=== PATIENT | female | born 1960 | race Caucasian/White ===

== ENCOUNTER → 2019-07-28 | Outpatient (CLI) | payer MEDICARE ==
[2019-07-28 14:42] LABS: COLLECTION METHOD CLEAN CATCH
[2019-07-28 14:46] LABS: BASO % 0.4 % (0.0-2.0); EOS % 0.6 % (0-4.0); GRAN # 3.6 (1.4-6.5); GRAN % 50.6 % (42.2-75.2); HEMATOCRIT 44.9 % (37.0-47.0); HEMOGLOBIN 14.2 g/dl (12.5-16.0); LYMPH # 3.1 (1.2-3.4); LYMPH % 43.3 % (20.0-51.0); MEAN CELL VOLUME 89 fl (80.0-100.0); MEAN CORPUSCULAR HEMOGLOBIN 28 pg (27.0-31.0); MEAN CORPUSCULAR HGB CONC 32 g/dl (33.0-37.0); MEAN PLATELET VOLUME 10.4 fl (7.4-10.4); MONO # 0.4 (0.1-0.6); PLATELET COUNT 311 K/mm3 (130-400); RED BLOOD COUNT 5.05 M/mm3 (4.10-5.30)
[2019-07-28 15:01] LABS: CALCIUM 9.4 mg/dL (8.4-10.2); CREATININE, serum 0.49 (0.52-1.25); POTASSIUM 3.5 mmol/L (3.4-5.0)
[2019-07-28 15:11] LABS: MUCOUS Present /lpf; PH 7 (5-8); URINE APPEARANCE Clear; URINE BACTERIA None Seen /hpf; URINE BILIRUBIN Negative (NEGATIVE); URINE BLOOD Negative (NEGATIVE); URINE COLOR Yellow; URINE GLUCOSE Negative (NEGATIVE); URINE KETONE Negative (NEGATIVE); URINE LEUKOCYTE ESTERASE Negative (NEGATIVE); URINE NITRATE Negative (NEGATIVE); URINE PROTEIN(semi-quant) Negative (NEGATIVE); URINE RBC 0-2 /hpf; URINE UROBILINOGEN Negative (NEGATIVE)
[2019-07-28 15:12] LABS: INR 0.9 (0.8-3.0); PROTHROMBIN TIME 10.8 SECONDS (9.7-12.8)
[2019-07-28 15:14] LABS: PARTIAL THROMBOPLASTIN TIME 29.4 SECONDS (26.0-37.0)
== END ==
LOC: ZLAB.STJ 14:32
PROVIDERS: Family Medicine
DX: Z01.812 Encounter for preprocedural laboratory examination (principal); G35 Multiple sclerosis

== ENCOUNTER → 2019-12-03 | Outpatient (CLI) | payer MEDICARE, MEDICAID ==
[2019-12-03 10:13] LABS: COLLECTION METHOD CLEAN CATCH
[2019-12-03 10:21] LABS: BASO % 0.3 % (0.0-2.0); EOS # 0.1 (0.0-0.7); EOS % 0.8 % (0-4.0); GRAN # 3.6 (1.4-6.5); GRAN % 54.5 % (42.2-75.2); HEMATOCRIT 39.6 % (37.0-47.0); HEMOGLOBIN 12.6 g/dl (12.5-16.0); LYMPH # 2.1 (1.2-3.4); LYMPH % 32.8 % (20.0-51.0); MEAN CELL VOLUME 88 fl (80.0-100.0); MEAN CORPUSCULAR HEMOGLOBIN 28 pg (27.0-31.0); MEAN CORPUSCULAR HGB CONC 32 g/dl (33.0-37.0); MEAN PLATELET VOLUME 9.8 fl (7.4-10.4); MONO # 0.7 (0.1-0.6); MONO % 11.3 % (1.7-9.3); PLATELET COUNT 296 K/mm3 (130-400); RED BLOOD COUNT 4.49 M/mm3 (4.10-5.30); REDCELL DISTRIBUTION WIDTH-CV 14.3 % (11.5-14.5)
[2019-12-03 10:23] LABS: ALBUMIN 3.8 gm/dL (3.5-5.0); BILIRUBIN,TOTAL 0.4 mg/dL (0.0-1.0); CALCIUM 8.9 mg/dL (8.4-10.2); CREATININE, serum 0.57 (0.52-1.25); POTASSIUM 4.6 mmol/L (3.4-5.0); TOTAL PROTEIN 7.2 gm/dL (6.4-8.2)
[2019-12-03 10:34] LABS: PH 5 (5-8); URINE APPEARANCE Turbid; URINE BILIRUBIN Negative (NEGATIVE); URINE BLOOD Negative (NEGATIVE); URINE GLUCOSE Negative (NEGATIVE); URINE KETONE Negative (NEGATIVE); URINE LEUKOCYTE ESTERASE Negative (NEGATIVE); URINE NITRATE Negative (NEGATIVE); URINE RBC 0-2 /hpf; URINE UROBILINOGEN Negative (NEGATIVE)
[2019-12-03 10:53] LABS: THYROID STIMULATING HORMONE 1.82 uIU/mL (0.465-4.680)
[2019-12-03 11:21] LABS: URINE BACTERIA Rare /hpf; URINE CALCIUM OXALATE CRYSTAL Present /hpf
[2019-12-03 11:22] LABS: URINE COLOR Yellow; URINE PROTEIN(semi-quant) 1+ (NEGATIVE)
== END ==
LOC: ZLAB.STJ 10:04
PROVIDERS: Family Medicine
DX: Z13.29 Encounter for screening for other suspected endocrine disorder (principal); G35 Multiple sclerosis; F32.1 Major depressive disorder, single episode, moderate; G50.0 Trigeminal neuralgia; Z79.899 Other long term (current) drug therapy

== ENCOUNTER 2020-05-12 12:41 | Inpatient (IN) | payer MEDICARE, MEDICAID ==
[~2020-05-12] VITALS: Ht 170.2 cm; Wt 64.5 kg
[2020-05-12] VITALS (214 sets, daily range): BP systolic 161–178; BP diastolic 92–122; PULSE 86–96; TEMP 98.5–99.6; O2SAT 78–100
[2020-05-12 13:05] LABS: BASO % 0.4 % (0.0-2.0); EOS # 0.1 (0.0-0.7); EOS % 0.8 % (0-4.0); GRAN % 52.5 % (42.2-75.2); HEMATOCRIT 40.9 % (37.0-47.0); HEMOGLOBIN 13.2 g/dl (12.5-16.0); LYMPH # 2.6 (1.2-3.4); LYMPH % 34.9 % (20.0-51.0); MEAN CELL VOLUME 85 fl (80.0-100.0); MEAN CORPUSCULAR HEMOGLOBIN 27 pg (27.0-31.0); MEAN CORPUSCULAR HGB CONC 32 g/dl (33.0-37.0); MEAN PLATELET VOLUME 9.3 fl (7.4-10.4); MONO # 0.8 (0.1-0.6); PLATELET COUNT 272 K/mm3 (130-400); RED BLOOD COUNT 4.82 M/mm3 (4.10-5.30); REDCELL DISTRIBUTION WIDTH-CV 14.4 % (11.5-14.5)
[2020-05-12 13:07] LABS: INR 1.1 (0.8-3.0)
[2020-05-12 13:28] LABS: BILIRUBIN,TOTAL 0.4 mg/dL (0.0-1.0); C-REACTIVE PROTEIN 0.9 mg/dL (0.0-0.9); CALCIUM 9.1 mg/dL (8.4-10.2); CREATININE, serum 0.68 (0.52-1.25); POTASSIUM 4.2 mmol/L (3.4-5.0)
[2020-05-12] MEDS ORDERED: BETASERON0.3 M2 (14:07)
[2020-05-12] MEDS ORDERED: TRILEPTAL 150M150 MG PO ×2 (14:09→23:35)
[2020-05-12] MEDS ORDERED: PAXIL 10MG10 MG PO (14:10)
[2020-05-12 14:31] LABS: COLLECTION METHOD CLEAN CATCH
[2020-05-12 14:43] LABS: MUCOUS Present /lpf; PH 5 (5-8); URINE APPEARANCE Cloudy; URINE BACTERIA Occasional /hpf; URINE BILIRUBIN Negative (NEGATIVE); URINE BLOOD Negative (NEGATIVE); URINE COLOR Yellow; URINE GLUCOSE Negative (NEGATIVE); URINE KETONE Trace (NEGATIVE); URINE LEUKOCYTE ESTERASE Trace (NEGATIVE); URINE NITRATE Negative (NEGATIVE); URINE PROTEIN(semi-quant) Negative (NEGATIVE); URINE UROBILINOGEN Negative (NEGATIVE)
--- NOTE | 2020-05-12 17:35 | NUR ---
Patient transferred to ICU bed 6 via ED stretcher with no complications. Patient connected to bedside monitor, vital signs stable, patient on room air with oxygen sats in the high 90's. Full assessment completed. Inspiratory and expiratory wheeze noted to all lung blake. Heart sounds normal rate and rhythm, S1 and S2 auscultated, no murmurs. Bowel sounds present, patient states last bowel movement yesterday. Refer to NIHSS documentation for change in status and increasing stroke symptoms. Pulses 2+ bilateral radial and 1+ pedal pulses. Patient has no pain at this time. Bed in lowest position, side rails up x3, call light and personal items placed within reach. 1745- Dr. Bruce at bedside to assess patient. Orders received.
--- NOTE | 2020-05-12 21:05 | NUR ---
Patient resting quietly in bed. BP 165/101, other vitals within normal limits. Patient alert and oriented x 4. Right sided weakness is evident; right sided facial droop, some resistance to gravity noted in the right upper and lower extremity. The right lower extremity is movable on the bed. Shakiness noted in the left upper extremity, but normal strength noted. Speech is slurred but understandable. Normal cough and gag reflexes present, however, will withhold PO medications at this time until speech can evaluate. Will continue to monitor.
--- NOTE | 2020-05-12 21:35 | NUR ---
Contacted hospitalist regarding PRN labetolol orders. Patient's SBP have been below 180, however, the DBP has been greater than 100 four times in the last hour, peaking at 123. Received orders to administer labetolol for SBP >180 or DBP > 105. Also spoke with hospitalist regarding hourly disphagia screening. Patient being held NPO pending speech/swallow evaluation. Hospitalist agrees hourly disphagia screen is not necessary; will retime intervention to coincide every four hours with full body assessment. Will continue to monitor.
[2020-05-13] VITALS (774 sets, daily range): BP systolic 129–186; BP diastolic 75–111; PULSE 80–109; TEMP 98–99; O2SAT 48–100
--- NOTE | 2020-05-13 02:00 | NUR ---
Notified by microfilm technician that patient had 3-4 second run of what appeared to be vfib. At the time, staff was at the bedside repositioning patient, however, a similar non-sustained episode noted at approximately 1930 while patient resting quietly in bed. Hospitalist notified and stat EKG ordered.
--- NOTE | 2020-05-13 11:26 | NUR ---
JAITN met with the patient to discuss discharge plan. The patient resides at [facility] in assisted living. She reports independence with ADLs and utilizes an electric scooter. The patient's PCP is Dr. Jaime Greene and she receives her medications at [facility]. JATIN contacted Dr. Jimenez's office and requested a copy of the patient's advanced directives. JATIN received the DPOA-HC and DPOA, via fax, from Dr. Jimenez's office. The patient's DPOA-HC is her sisters: Patricia Kumar (ph#[phone]) and Beatriz Bettencourt (ph#[phone]). It also designated her ex-husbad, Venancio. The patient stated to cross her Venancio off the form. The patient was admitted due to a stroke. JATIN discussed post-acute rehab. The patient was agreeable to rehab and chose [facility]. JATIN contacted and faxed a referral to Donnie at [facility]. Donnie reports that they would be able to accept the patient and have a bed for her. JATIN contacted and updated the patient's sister, Patricia. JATIN to continue to follow.
[2020-05-13 14:43] LABS: CALCIUM 8.8 mg/dL (8.4-10.2); CREATININE, serum 0.53 (0.52-1.25); POTASSIUM 3.8 mmol/L (3.4-5.0)
[2020-05-13 14:46] LABS: BASO % 0.2 % (0.0-2.0); EOS % 0.4 % (0-4.0); GRAN # 3.2 (1.4-6.5); GRAN % 60.4 % (42.2-75.2); LYMPH # 1.5 (1.2-3.4); MEAN CELL VOLUME 84 fl (80.0-100.0); MEAN CORPUSCULAR HGB CONC 33 g/dl (33.0-37.0); MEAN PLATELET VOLUME 9.4 fl (7.4-10.4); MONO # 0.5 (0.1-0.6); MONO % 9.8 % (1.7-9.3); RED BLOOD COUNT 6.29 M/mm3 (4.10-5.30); REDCELL DISTRIBUTION WIDTH-CV 14.7 % (11.5-14.5)
[2020-05-13 14:50] LABS: HEMATOCRIT 52.9 % (37.0-47.0); HEMOGLOBIN 17.3 g/dl (12.5-16.0); MEAN CORPUSCULAR HEMOGLOBIN 28 pg (27.0-31.0); PLATELET COUNT 153 K/mm3 (130-400)
--- NOTE | 2020-05-13 20:00 | NUR ---
Assessment complete; patient alert and oriented. Right sided weakness observed. Patient reports this is per her normal since hospital arrival. Assisted to change purwick at this time. Will continue to monitor.
--- NOTE | 2020-05-13 22:15 | NUR ---
Dr. Luu placed written orders in patient's chart. Will need to clarify medication orders in the morning.
--- NOTE | 2020-05-13 22:18 | NUR ---
Patient hypertensive with systolic's ranging 170-180 and diastolic greater than 100. Administered PRN labatelol with some effect in lowering BP. Hospitalist notifed of patient's recent blood pressures to verify that they are on target for post stroke goal. No changes at this time. Will continue to monitor.
[2020-05-14] VITALS (301 sets, daily range): BP systolic 117–171; BP diastolic 87–106; PULSE 79–100; TEMP 97.9–98.9; O2SAT 91–98
--- NOTE | 2020-05-14 01:54 | NUR ---
Resting quietly in bed; awakens easily. Alert and oriented per usual. Will continue to monitor.
[2020-05-14 05:59] LABS: BASO % 0.3 % (0.0-2.0); EOS % 0.6 % (0-4.0); GRAN # 4.3 (1.4-6.5); GRAN % 59.9 % (42.2-75.2); HEMATOCRIT 38.1 % (37.0-47.0); LYMPH # 2.1 (1.2-3.4); MEAN CELL VOLUME 85 fl (80.0-100.0); MEAN CORPUSCULAR HEMOGLOBIN 28 pg (27.0-31.0); MEAN CORPUSCULAR HGB CONC 33 g/dl (33.0-37.0); MEAN PLATELET VOLUME 9.6 fl (7.4-10.4); MONO # 0.7 (0.1-0.6); MONO % 10.1 % (1.7-9.3); PLATELET COUNT 245 K/mm3 (130-400); RED BLOOD COUNT 4.51 M/mm3 (4.10-5.30); REDCELL DISTRIBUTION WIDTH-CV 14.5 % (11.5-14.5)
[2020-05-14 06:00] LABS: HEMOGLOBIN 12.6 g/dl (12.5-16.0)
[2020-05-14 06:05] LABS: CREATININE, serum 0.48 (0.52-1.25); POTASSIUM 3.9 mmol/L (3.4-5.0)
--- NOTE | 2020-05-14 14:30 | NUR ---
Report called to Gilda at 1339. Notified DPOA of room change at 1345. Patient transfered to medical floor via bed with belongings and IV infusing at 1430. Patient pleasant and cooperative throughout transfer.
--- NOTE | 2020-05-14 15:56 | NUR ---
The hospitalist asked JATIN if [facility] would be able to administer Solumedrol, via IV, for the patient and if not; if they could bring the patient to the express unit for this. JATIN contacted and asked Donnie at [facility]. Donnie reports that he is unsure and will need updates with this information and would provide it to his clinical team. JATIN informed the hospitalist of this. JATIN awaiting progress note with the Solumedrol instructions. JATIN to continue to follow.
--- NOTE | 2020-05-14 16:32 | NUR ---
The patient's progress note from today is still pending. JATIN notified and faxed the patient's other notes to Donnie at [facility]. JATIN to continue to follow.
--- NOTE | 2020-05-14 16:33 | NUR ---
Pt up to the medical floor in room 319 at this time. She is A/O x4. Her breathing is even and unlabored on RA. Pt currently denies any pain. No RAC and LW IV's leaking and dirty, new IV started to RFA. Purewick started on patient. [place] thick liquids provided. Pt has good movement and network intelligence analyst with L hand, slight movement with R hand. Slight movement with R leg. SCDs in place. Pt has no needs at this time. Call light within reach. Will continue to monitor.
[2020-05-15] VITALS (7 sets, daily range): BP systolic 123–167; BP diastolic 61–94; PULSE 72–92; TEMP 97.5–98.6
--- NOTE | 2020-05-15 05:57 | NUR ---
PATIENT HAD AN UNEVENTFUL NIGHT. SHE WAS ABLE TO SLEEP THROUGH THE NIGHT. IV FLUIDS ARE INFUSING WITHOUT DIFFICULTY. PATIENT DID NEED ASSISTANCE WITH EATING. PATIENT HAS THE EXTERNAL FEMALE CATHETER IN PLACE THAT IS DRAINING. DENIES ANY OTHER NEEDS. WILL REPORT OFF TO DAY SHIFT
[2020-05-15 07:30] LABS: BASO % 0.1 % (0.0-2.0); GRAN % 80.3 % (42.2-75.2); HEMATOCRIT 37.6 % (37.0-47.0); HEMOGLOBIN 12.2 g/dl (12.5-16.0); LYMPH # 1.2 (1.2-3.4); LYMPH % 15.9 % (20.0-51.0); MEAN CELL VOLUME 85 fl (80.0-100.0); MEAN CORPUSCULAR HEMOGLOBIN 28 pg (27.0-31.0); MEAN CORPUSCULAR HGB CONC 32 g/dl (33.0-37.0); MEAN PLATELET VOLUME 9.5 fl (7.4-10.4); MONO # 0.3 (0.1-0.6); MONO % 3.3 % (1.7-9.3); PLATELET COUNT 265 K/mm3 (130-400); RED BLOOD COUNT 4.43 M/mm3 (4.10-5.30); REDCELL DISTRIBUTION WIDTH-CV 13.9 % (11.5-14.5)
[2020-05-15 07:33] LABS: CALCIUM 9.1 mg/dL (8.4-10.2); CREATININE, serum 0.45 (0.52-1.25); POTASSIUM 4.1 mmol/L (3.4-5.0)
--- NOTE | 2020-05-15 18:13 | NUR ---
Pt assessment completed and charted, alert, partially oriented. Meds provided as per MAR, tolerated well, pt swollowed her pills without water. No N/V/D, pain, numbness, tingling, pain as per pt. Inj. enteferone adminstered. Pt slept on and off through out the day. Assisted to feed her breakfast and lunch, tolerated well. No further needs at this time.
--- NOTE | 2020-05-15 22:00 | NUR ---
Pt assessment completed and documented. Pt resting in bed at this time watching TV. Pt alert and oriented x4. Denies pain at this time. Right sided weakness noted on assessment that pt states "is getting better". Hand desktop publisher equal bilaterally. INT to right forearm without complications. Pt denies any other needs at this time. Call light within reach. Will continue to monitor.
[2020-05-16] VITALS (8 sets, daily range): BP systolic 128–170; BP diastolic 85–100; PULSE 78–82; TEMP 97.3–97.9
--- NOTE | 2020-05-16 05:35 | NUR ---
Pt had uneventful shift. Pt rested well throughout the night. States she is "feeling better". No complaints of pain. INT to right forearm without complications. Purewick in place. Pt denies any other needs at this time. Call light within reach. Will continue to monitor.
--- NOTE | 2020-05-16 06:42 | NUR ---
Report given to DIONNE Vo
--- NOTE | 2020-05-16 08:34 | NUR ---
Pt resting in bed upon entering room. A/O, no significant findings upon respiratory or cardiac assessments. Weakness noted in RUE, full ROM LUE and LLE, flaccid RLE. Pt has Purewick catheter placed. Denies pain. Requests assistance with eating once meal tray arrives. No other needs expressed at this time. Will continue to monitor. Call light within reach.
--- NOTE | 2020-05-16 19:02 | NUR ---
No significant changes this shift. Pt denied pain and concerns throughout day. Bed bath given. Repositioned throughout shift. Report given to geospatial systems integrator RN.
--- NOTE | 2020-05-16 20:25 | NUR ---
AWARE OF BLOOD PRESSURE OF THE PATIENT. PATIENT WAS MOVING HER ARM AND WOULD NOT KEEP IT VERY STILL. GOING TO RECHECK THE BLOOD PRESSURE
[2020-05-17 03:45] VITALS: BP 136/86; PULSE 75; TEMP 97.5
--- NOTE | 2020-05-17 05:32 | NUR ---
PATIENT HAS HAD AN UNEVENTFUL NIGHT. PATIENT WAS ABLE TO GET SOME REST THROUGH THE SHIFT. PATIENT DID NOT REQUIRE ANY INSULIN AT HS. EXTERNAL FEMALE CATHETER WAS EXCHANGED AND IS WORKING WELL. PATIENT DID TRY TO USE THE BEDPAN AND DID NOT HAVE ANY LUCK. PATIENT DID NOT REPORT ANY PAIN. PATIENT DENIES ANY OTHER NEEDS. WILL REPORT OFF TO DAY SHIFT.
[2020-05-17 08:06] VITALS: BP 143/86; PULSE 69; TEMP 97.8
--- NOTE | 2020-05-17 10:25 | NUR ---
Pt awake and alert upon entry, talkative and appropriate, no C/O pain at this time. Hand consulting utility forester strong in both hands but unequal, left stronger than the right, she is able to lift the right arm off the bed. Shift assessments complete, left Pt call light in reach, bed in lowest position.
[2020-05-17 11:09] VITALS: BP 139/87; PULSE 78; TEMP 98.5
--- NOTE | 2020-05-17 12:03 | NUR ---
The patient is to tentatively discharge tomorrow, 05/18. JATIN notified and faxed updates to Donnie at [facility]. JATIN's met with the patient and presented and read the IM form outloud. The patient verbalized understanding and gave JATIN approval to sign the form on her behalf. JATIN provided her with a copy. JATIN to continue to follow.
[2020-05-17 16:02] VITALS: BP 131/84; PULSE 77; TEMP 97.5
--- NOTE | 2020-05-17 19:32 | NUR ---
Pt rested in the bed today, no C/O pain throughout the shift. Pt had issues with the lunch tray, she was not able to feed herself using utensils, discussed with Pt if she would be willing to try "finger type foods" she stated she was willing to, contacted provider and suggested changes, contacted kitchen to see what foods were available, in consultation with the Pt we ordered foods that Pt likes and were available, checked on Pt at dinner meal and she ate the entire meal that was offered without assistance.
[2020-05-17 20:12] VITALS: BP 134/83; PULSE 92; TEMP 97.6
[2020-05-18 01:08] VITALS: BP 168/108; PULSE 82; TEMP 98.8
--- NOTE | 2020-05-18 04:47 | NUR ---
JUST WAS MADE AWARE OF THE PATIENTS BLOOD PRESSURE. WILL RECHECK IT
[2020-05-18 04:49] VITALS: BP 157/97; PULSE 76; TEMP 98
--- NOTE | 2020-05-18 05:30 | NUR ---
PATIENT HAS BEEN SLEEPING THROUGH THE NIGHT AND DENIED ANY ISSUES. PATIENT WAS WANTING HER PHONE PLUGGED IN BUT WHEN THIS NURSE TRIED TO HELP, THE BELT CONVEYOR DRIER WOULD NOT ADVANCE INTO THE PHONE PORT FOR IT TO CHARGE. PATIENT HAS THE EXTERNAL FEMALE CATHETER IN PLACE THAT WAS CHANGED THIS MORNING DURING MY SHIFT. DRAINING APPROPRIATLEY. PATIENT BLOOD PRESSURE WAS DOWN A LITTLE BIT AFTER RECHECKING IT. PATIENT HAD NO OTHER COMPLAINTS. PATIENT DENIES ANY OTHER NEEDS AT THIS TIME. CALL LIGHT WITHIN REACH. WILL REPORT OFF TO DAY SHIFT.
[2020-05-18 07:46] VITALS: BP 146/87; PULSE 82; TEMP 97.9
[2020-05-18 07:59] LABS: GRAN # 5.2 (1.4-6.5); HEMOGLOBIN 13.2 g/dl (12.5-16.0); LYMPH # 1.4 (1.2-3.4); LYMPH % 19.6 % (20.0-51.0); MEAN CELL VOLUME 84 fl (80.0-100.0); MEAN CORPUSCULAR HEMOGLOBIN 27 pg (27.0-31.0); MEAN CORPUSCULAR HGB CONC 32 g/dl (33.0-37.0); MEAN PLATELET VOLUME 9.8 fl (7.4-10.4); MONO # 0.6 (0.1-0.6); PLATELET COUNT 298 K/mm3 (130-400); RED BLOOD COUNT 4.87 M/mm3 (4.10-5.30); REDCELL DISTRIBUTION WIDTH-CV 13.9 % (11.5-14.5)
--- NOTE | 2020-05-18 08:00 | NUR ---
PT IN BED UPON ENTRY, PLEASANT MOOD, DENIES PAIN OR DISCOMFORT, SWITCHBOARD RECEPTIONIST UNEQUAL, PT ABLE TO LIFT BOTH LEGS BUT RIGHT LEG NOT RAISED HIGH. NO OTHER NEEDS AT THIS TIME.
[2020-05-18 08:19] LABS: CALCIUM 8.6 mg/dL (8.4-10.2); CREATININE, serum 0.5 (0.52-1.25); POTASSIUM 3.4 mmol/L (3.4-5.0)
[2020-05-18] MEDS ORDERED: PRINIVIL20 MG PO (09:37)
[2020-05-18] MEDS ORDERED: PROTONIX20 MG PO (09:38)
[2020-05-18] MEDS ORDERED: PREDNISONE20 MG PO (09:39)
[2020-05-18 11:02] VITALS: BP 146/87; PULSE 82; TEMP 97.9
--- NOTE | 2020-05-18 11:02 | NUR ---
The patient is to discharge today, 05/18, back to [facility] for a skilled stay. Transportation was scheduled at 1130, via [facility]. SW informed the patient, her RN, and the patient's sisters (Patricia & Beatriz), via phone. They were all agreeable to the time. No additional needs at this time.
--- NOTE | 2020-05-18 11:36 | NUR ---
IV DISCONTINUED, REPORT CALLED TO [facility], EXTERNAL CATHETER REMOVED.
--- NOTE | 2020-05-18 11:55 | NUR ---
PT ESCORTED OUT VIA WHEELCHAIR WITH BELONGINGS AND INFORMATION PACKET. NO OTHER NEEDS AT THIS TIME.
--- NOTE | 2020-05-18 12:06 | NUR ---
First visit from the ecotherapist. No needs right now.
== END 2020-05-18 11:57 | DRG 59 ==
LOC: COL.ER 12:41 → ICU 16:27 → MEDICAL 05-14 14:34
PROVIDERS: Family Medicine; Hospitalist; ADMIT Student in an Organized Health Care Education/Training Program
DX: G35 Multiple sclerosis (principal); R47.01 Aphasia; Z86.73 Personal history of transient ischemic attack (TIA), and cerebral infarction without residual deficits; I67.1 Cerebral aneurysm, nonruptured; I10 Essential (primary) hypertension; G81.91 Hemiplegia, unspecified affecting right dominant side; F17.210 Nicotine dependence, cigarettes, uncomplicated; F32.9 Major depressive disorder, single episode, unspecified; Z90.710 Acquired absence of both cervix and uterus; Z20.828 Contact with and (suspected) exposure to other viral communicable diseases
CPT/HCPCS: 99223-AI; 99231-AI; 99232-AI; 99233-AI; 99239; A9585; J0696; J1650; J1815; J2405; J2930; J2997; J7030; J7050; Q9967

== ENCOUNTER → 2020-07-05 | Outpatient (CLI) | payer MEDICARE, MEDICAID ==
[~2020-07-05] MED LIST: BETASERON0.3 M2; PAXIL 10MG10 MG PO; PREDNISONE20 MG PO; PRINIVIL20 MG PO; PROTONIX20 MG PO; TRILEPTAL 150M150 MG PO
[2020-07-05 12:40] LABS: CALCIUM 8.8 mg/dL (8.4-10.2); CREATININE, serum 0.41 (0.52-1.25); POTASSIUM 3.2 mmol/L (3.4-5.0)
== END ==
LOC: ZLAB.STJ 11:56
PROVIDERS: Family Medicine
DX: I10 Essential (primary) hypertension (principal)

== ENCOUNTER → 2020-07-20 | Outpatient (CLI) | payer MEDICARE, MEDICAID ==
[2020-07-21 11:50] LABS: CALCIUM 9.4 mg/dL (8.4-10.2); CREATININE, serum 0.48 (0.52-1.25); POTASSIUM 4.9 mmol/L (3.4-5.0)
== END ==
LOC: ZLAB.STJ 15:37
PROVIDERS: Family Medicine
DX: Z01.89 Encounter for other specified special examinations (principal)

== ENCOUNTER → 2020-08-03 | Outpatient (CLI) | payer MEDICARE, MEDICAID | LOC: COL.CARD 13:00 | DX: G35 Multiple sclerosis (principal); R53.1 Weakness; R25.1 Tremor, unspecified; R13.10 Dysphagia, unspecified ==

== ENCOUNTER → 2020-08-17 | Outpatient (CLI) | payer MEDICARE, MEDICAID | LOC: ZLAB.STJ 14:20 | DX: G50.0 Trigeminal neuralgia (principal) ==

== ENCOUNTER 2020-09-12 17:21 | Emergency (ER) | payer MEDICARE, MEDICAID ==
[~2020-09-12] VITALS: Ht 170.2 cm; Wt 56.8 kg
[2020-09-12 17:58] LABS: BASO % 0.3 % (0.0-2.0); EOS % 0.2 % (0-4.0); GRAN # 8.3 (1.4-6.5); GRAN % 76.2 % (42.2-75.2); HEMATOCRIT 41.7 % (37.0-47.0); HEMOGLOBIN 13.3 g/dl (12.5-16.0); LYMPH # 1.3 (1.2-3.4); LYMPH % 12.2 % (20.0-51.0); MEAN CELL VOLUME 86 fl (80.0-100.0); MEAN CORPUSCULAR HEMOGLOBIN 27 pg (27.0-31.0); MEAN CORPUSCULAR HGB CONC 32 g/dl (33.0-37.0); MEAN PLATELET VOLUME 8.8 fl (7.4-10.4); MONO # 1.2 (0.1-0.6); MONO % 10.8 % (1.7-9.3); PLATELET COUNT 316 K/mm3 (130-400); RED BLOOD COUNT 4.88 M/mm3 (4.10-5.30); REDCELL DISTRIBUTION WIDTH-CV 16.4 % (11.5-14.5)
[2020-09-12 18:05] LABS: PROTHROMBIN TIME 11.2 SECONDS (9.7-12.8)
[2020-09-12 18:11] LABS: ALANINE AMINOTRANSFERASE 25 U/L (4-34); ALBUMIN 4.5 gm/dL (3.5-5.0); ALKALINE PHOSPHATASE 96 U/L (50-136); ANION GAP 11 mmol/L (7-16); AST,SGOT 24 U/L (15-37); BILIRUBIN,TOTAL 0.5 mg/dL (0.0-1.0); BLOOD UREA NITROGEN 24 mg/dL (7-17); C-REACTIVE PROTEIN 5.3 mg/dL (0.0-0.9); CALCIUM 9.4 mg/dL (8.4-10.2); CARBON DIOXIDE 28 mmol/L (22-30); CHLORIDE 99 mmol/L (98-107); CREATININE, serum 0.57 (0.52-1.25); GLUCOSE 107 mg/dL (74-106); POTASSIUM 4.4 mmol/L (3.4-5.0); SODIUM 138 mmol/L (137-145); TOTAL PROTEIN 8.3 gm/dL (6.4-8.2)
[2020-09-12 18:16] LABS: COLLECTION METHOD CLEAN CATCH
[2020-09-12 18:22] LABS: PH 8 (5-8); SQUAMOUS EPITHELIAL 0-2 /hpf; URINE APPEARANCE Turbid; URINE BACTERIA Rare /hpf; URINE BILIRUBIN Negative (NEGATIVE); URINE BLOOD 2+ (NEGATIVE); URINE COLOR Yellow; URINE GLUCOSE Negative (NEGATIVE); URINE KETONE Trace (NEGATIVE); URINE LEUKOCYTE ESTERASE 2+ (NEGATIVE); URINE NITRATE Negative (NEGATIVE); URINE PROTEIN(semi-quant) 2+ (NEGATIVE); URINE RBC >50 /hpf; URINE UROBILINOGEN Negative (NEGATIVE)
[2020-09-12 18:29] LABS: TROPONIN-I < 0.012 ng/mL (0.000-0.035)
[2020-09-12 18:32] VITALS: TEMP 98.3
[2020-09-12] MEDS ORDERED: OMNICEF 300MG300 MG PO (18:33)
[2020-09-12 18:39] LABS: TSH w REFLEX 0.419 uIU/mL (0.465-4.680)
[2020-09-12 19:56] VITALS: BP 139/90; PULSE 100
== END 2020-09-12 20:40 | disposition home or self-care (01) ==
LOC: COL.ER 17:21
PROVIDERS: Emergency Medicine
DX: R00.0 Tachycardia, unspecified (principal); N39.0 Urinary tract infection, site not specified; I10 Essential (primary) hypertension; G35 Multiple sclerosis; Z90.710 Acquired absence of both cervix and uterus; Z79.52 Long term (current) use of systemic steroids
CPT/HCPCS: J0696; J7030

== ENCOUNTER → 2020-09-18 | Outpatient (CLI) | payer MEDICARE, MEDICAID ==
[~2020-09-18] MED LIST changes: +OMNICEF 300MG300 MG PO
== END ==
LOC: ZCOL.LAB 12:57
DX: Z51.81 Encounter for therapeutic drug level monitoring (principal)

== ENCOUNTER → 2020-12-22 | Outpatient (CLI) | payer MEDICARE, MEDICAID ==
[2020-12-22 13:54] LABS: COLLECTION METHOD CLEAN CATCH
[2020-12-22 14:05] LABS: BASO % 0.4 % (0.0-2.0); EOS % 0.6 % (0-4.0); GRAN # 2.2 (1.4-6.5); HEMATOCRIT 39.3 % (37.0-47.0); HEMOGLOBIN 12.2 g/dl (12.5-16.0); LYMPH # 2.1 (1.2-3.4); LYMPH % 43.2 % (20.0-51.0); MEAN CELL VOLUME 89 fl (80.0-100.0); MEAN CORPUSCULAR HEMOGLOBIN 28 pg (27.0-31.0); MEAN CORPUSCULAR HGB CONC 31 g/dl (33.0-37.0); MEAN PLATELET VOLUME 9.8 fl (7.4-10.4); MONO # 0.5 (0.1-0.6); MONO % 10.6 % (1.7-9.3); PLATELET COUNT 298 K/mm3 (130-400); RED BLOOD COUNT 4.42 M/mm3 (4.10-5.30); REDCELL DISTRIBUTION WIDTH-CV 14.3 % (11.5-14.5)
[2020-12-22 14:15] LABS: ALBUMIN 3.8 gm/dL (3.5-5.0); BILIRUBIN,TOTAL 0.4 mg/dL (0.0-1.0); CALCIUM 8.9 mg/dL (8.4-10.2); CHOLESTEROL RISK RATIO 5.9; CREATININE, serum 0.6 (0.52-1.25); TOTAL PROTEIN 7.1 gm/dL (6.4-8.2)
[2020-12-22 14:27] LABS: PH 8 (5-8); SQUAMOUS EPITHELIAL None Seen /hpf; URINE APPEARANCE Cloudy; URINE BACTERIA None Seen /hpf; URINE BILIRUBIN Negative (NEGATIVE); URINE BLOOD Negative (NEGATIVE); URINE CALCIUM OXALATE CRYSTAL Present /hpf; URINE COLOR Yellow; URINE GLUCOSE Negative (NEGATIVE); URINE KETONE Negative (NEGATIVE); URINE LEUKOCYTE ESTERASE 3+ (NEGATIVE); URINE NITRATE Negative (NEGATIVE); URINE PROTEIN(semi-quant) 1+ (NEGATIVE); URINE TRIPLE PHOSPHATE CRYSTAL Present /hpf; URINE UROBILINOGEN Negative (NEGATIVE)
[2020-12-22 14:45] LABS: THYROID STIMULATING HORMONE 1.42 uIU/mL (0.465-4.680)
== END ==
LOC: ZLAB.STJ 11:22
PROVIDERS: Family Medicine
DX: D64.9 Anemia, unspecified (principal); E78.5 Hyperlipidemia, unspecified; N39.0 Urinary tract infection, site not specified; I10 Essential (primary) hypertension; R94.6 Abnormal results of thyroid function studies

== ENCOUNTER → 2021-03-16 | Outpatient (CLI) | payer MEDICARE, MEDICAID | LOC: MC.RAD 09:13 | DX: Z12.31 Encounter for screening mammogram for malignant neoplasm of breast (principal) ==

== ENCOUNTER → 2021-06-24 | Outpatient (CLI) | payer MEDICARE, MEDICAID ==
[2021-06-24 10:41] LABS: CALCIUM 8.9 mg/dL (8.4-10.2); CREATININE, serum 0.56 (0.52-1.25); POTASSIUM 3.3 mmol/L (3.4-5.0)
== END ==
LOC: ZLAB.STJ 10:22
PROVIDERS: Family Medicine
DX: I10 Essential (primary) hypertension (principal)

== ENCOUNTER → 2021-07-05 | Outpatient (CLI) | payer MEDICARE, MEDICAID ==
[2021-07-08 09:18] LABS: TRILEPTAL 11 mcg/mL (10 - 35)
== END ==
LOC: ZCOL.LAB 10:57
PROVIDERS: Psychiatry & Neurology Neurology
DX: G50.0 Trigeminal neuralgia (principal); Z79.899 Other long term (current) drug therapy

== ENCOUNTER → 2021-07-11 | Outpatient (CLI) | payer MEDICARE, MEDICAID ==
[2021-07-11 17:23] LABS: CREATININE, serum 0.51 (0.52-1.25)
== END ==
LOC: ZLAB.STJ 15:52
PROVIDERS: Psychiatry & Neurology Neurology
DX: R79.89 Other specified abnormal findings of blood chemistry (principal)

== ENCOUNTER → 2021-07-14 | Outpatient (CLI) | payer MEDICARE, MEDICAID | LOC: COL.RAD 07-08 14:00 | DX: I67.1 Cerebral aneurysm, nonruptured (principal) | CPT/HCPCS: Q9967 ==

== ENCOUNTER → 2021-07-22 | Outpatient (CLI) | payer MEDICARE, MEDICAID ==
[2021-07-22 10:21] LABS: CALCIUM 8.9 mg/dL (8.4-10.2); CREATININE, serum 0.52 (0.52-1.25); POTASSIUM 4.2 mmol/L (3.4-5.0)
== END ==
LOC: ZLAB.STJ 09:50
PROVIDERS: Family Medicine
DX: I10 Essential (primary) hypertension (principal)

== ENCOUNTER → 2021-09-06 | Outpatient (CLI) | payer MEDICARE, MEDICAID | LOC: ZLAB.STJ 12:04 | DX: G50.0 Trigeminal neuralgia (principal) ==

== ENCOUNTER → 2021-11-15 | Outpatient (CLI) | payer MEDICARE, MEDICAID | LOC: ZLAB.STJ 10:45 | DX: G35 Multiple sclerosis (principal) ==

== ENCOUNTER → 2022-02-15 | Outpatient (CLI) | payer MEDICARE, MEDICAID ==
[2022-02-15 11:03] LABS: CALCIUM 8.7 mg/dL (8.4-10.2); CREATININE, serum 0.71 mg/dL (0.57-1.11); POTASSIUM 4.3 mmol/L (3.5-4.5)
== END ==
LOC: ZLAB.STJ 10:57
PROVIDERS: Family Medicine
DX: I10 Essential (primary) hypertension (principal)

== ENCOUNTER → 2022-05-12 | Outpatient (CLI) | payer MEDICARE, MEDICAID ==
[2022-05-12 11:28] LABS: COLLECTION METHOD CLEAN CATCH
[2022-05-12 11:39] LABS: BASO % 0.6 % (0.0-2.0); EOS # 0.1 K/mm3 (0.0-0.7); EOS % 0.9 % (0.0-4.0); GRAN # 2.9 K/mm3 (1.4-6.5); GRAN % 54.3 % (42.2-75.2); HEMATOCRIT 38.7 % (37.0-47.0); HEMOGLOBIN 12.6 g/dl (12.5-16.0); LYMPH # 1.8 K/mm3 (1.2-3.4); LYMPH % 33.3 % (20.0-51.0); MEAN CELL VOLUME 88 fl (80.0-100.0); MEAN CORPUSCULAR HEMOGLOBIN 29 pg (27-31); MEAN CORPUSCULAR HGB CONC 33 g/dl (33.0-37.0); MEAN PLATELET VOLUME 9.4 fl (7.4-10.4); MONO # 0.6 K/mm3 (0.1-0.6); MONO % 10.7 % (1.7-9.3); PLATELET COUNT 268 K/mm3 (130-400); RED BLOOD COUNT 4.41 M/mm3 (4.10-5.30); REDCELL DISTRIBUTION WIDTH-CV 13.6 % (11.5-14.5)
[2022-05-12 12:00] LABS: MUCOUS Present (NOT PRESENT); PH 5 (5-8); URINE APPEARANCE Cloudy (CLEAR/HAZY); URINE BACTERIA Many /hpf (NONE SEEN); URINE BILIRUBIN Negative (NEGATIVE); URINE BLOOD Negative (NEGATIVE); URINE COLOR Yellow (YELLOW); URINE GLUCOSE Negative (NEGATIVE); URINE KETONE Negative (NEGATIVE); URINE LEUKOCYTE ESTERASE 3+ (NEGATIVE); URINE NITRATE Negative (NEGATIVE); URINE PROTEIN(semi-quant) Negative (NEGATIVE); URINE UROBILINOGEN Negative (NEGATIVE)
[2022-05-12 12:03] LABS: THYROID STIMULATING HORMONE 1.344 uIU/mL (0.350-4.940)
[2022-05-12 12:16] LABS: ALBUMIN 3.5 gm/dL (3.4-4.8); BILIRUBIN,TOTAL 0.3 mg/dL (0.2-1.2); CALCIUM 8.8 mg/dL (8.4-10.2); CREATININE, serum 0.71 mg/dL (0.57-1.11); TOTAL PROTEIN 7.4 gm/dL (6.2-8.1)
[2022-05-12 12:36] LABS: POTASSIUM 3.9 mmol/L (3.5-4.5)
[2022-05-12 15:22] LABS: CHOLESTEROL RISK RATIO 6.1
== END ==
LOC: ZLAB.STJ 11:10
PROVIDERS: Family Medicine
DX: I10 Essential (primary) hypertension (principal); R82.90 Unspecified abnormal findings in urine; R13.12 Dysphagia, oropharyngeal phase; Z79.899 Other long term (current) drug therapy

== ENCOUNTER → 2022-06-23 | Outpatient (CLI) | payer MEDICARE, MEDICAID ==
[2022-06-23 06:52] LABS: ALBUMIN 3.2 gm/dL (3.4-4.8); BILIRUBIN,TOTAL 0.3 mg/dL (0.2-1.2); CREATININE, serum 0.74 mg/dL (0.57-1.11); POTASSIUM 3.8 mmol/L (3.5-4.5); TOTAL PROTEIN 6.9 gm/dL (6.2-8.1)
== END ==
LOC: ZCOL.LAB 06:21
PROVIDERS: Psychiatry & Neurology Neurology
DX: Z01.89 Encounter for other specified special examinations (principal)